=== PATIENT | female | born 1990 ===

== ENCOUNTER 2018-01-06 07:02 | Inpatient (IN) ==
[2018-01-06] MEDS ORDERED: ONDANSETRON 4 MG/2 ML VIAL IV PRN ×3 (08:26→21:44)
[2018-01-06] MEDS ORDERED: LACTATED RINGERS 1,000 ML IV SCH (08:30)
[2018-01-06] MEDS ORDERED: OXYTOCIN/LR 20 UNIT/1,000 ML BAG IV SCH (08:30)
[2018-01-06 08:45] LABS: Basophils % 0.2 % (0.0-0.8); Eosinophils # 0.1 10*3/uL (0.0-0.87); Eosinophils % 0.7 % (0.00-10.9); Hematocrit 36.4 VOL% (35.7-47.0); Hemoglobin 11.9 GM/DL (12.0-16.0); Immature Granulocytes % 0.3 %; Immature Granulocytes Absolute 0.03 #; Lymphocytes # 2.4 10*3/uL (1.4-4.0); Lymphocytes % 25.7 % (21.3-54.2); Mean Corpuscular HGB Conc 32.7 GM/DL (32-36); Mean Corpuscular Hemoglobin 30 PG (27-34); Mean Corpuscular Volume 90.1 FL (87-102); Mean Platelet Volume 11.6 FL (9.6-12.0); Monocytes # 0.5 10*3/uL (0.11-0.8); Monocytes % 5.8 % (1.7-12.7); Neutrophils # 6.1 10*3/uL (1.4-7.4); Neutrophils % 67.3 % (38.7-73.9); Platelet Count 274 T/CUMM (130-400); Red Blood Count 4.04 MC/CUMM (3.8-5.5); White Blood Count 9.1 T/CUMM (4-12)
[2018-01-06 09:23] LABS: Albumin 2.4 G/DL (3.4-5.0); Bilirubin,Total 0.5 MG/DL (0.2-1.0); Calcium 8.9 MG/DL (8.5-10.1); Osmolality,Calculated 275.5 MOS/KG (273-304); Potassium 3.9 MMOL/L (3.5-5.1); Total Protein 6.7 G/DL (6.4-8.3)
[2018-01-06] MEDS: MEPERIDINE 50 MG/1 ML VIAL IV PRN ×2 (13:42→16:12)
[2018-01-06] MEDS ORDERED: NALOXONE 0.4 MG/ML VIAL IV PRN (17:15)
[2018-01-06] MEDS ORDERED: CITRIC ACID/SODIUM CITRATE 30 ML UDCUP PO ONE (17:15)
[2018-01-06] MEDS ORDERED: LACTATED RINGERS 1,000 ML IV ONE (17:15)
[2018-01-06] MEDS ORDERED: FAMOTIDINE 20 MG/2 ML VIAL IV ONE (17:15)
[2018-01-06] MEDS ORDERED: ePHEDrine 50 MG/ML AMP IV PRN (17:15)
[2018-01-06] MEDS ORDERED: diphenhydrAMINE 50 MG/1 ML VIAL IV PRN ×2 (17:15)
[2018-01-06] MEDS ORDERED: fentaNYL 2 MCG/ROPIV 0.2% EPID 100 ML EPIDURAL SCH (17:30)
[2018-01-06] MEDS ORDERED: miSOPROStol 200 MCG TABLET ONE (19:19)
[2018-01-06] MEDS ORDERED: LIDOCAINE 1% 50 ML VIAL ONE (19:19)
[2018-01-06] MEDS ORDERED: METHYLERGONOVINE 0.2 MG/1 ML AMP ONE (19:20)
[2018-01-06] MEDS ORDERED: METHYLERGONOVINE 0.2 MG/1 ML AMP IM ONE (21:15)
[2018-01-06] MEDS ORDERED: ACETAMINOPHEN 325 MG TABLET PO PRN ×2 (21:42→21:44)
[2018-01-06] MEDS ORDERED: HYDROCORTISONE 2.5% RECTAL CREAM 30 GM TUBE TOP PRN ×2 (21:42→21:44)
[2018-01-06] MEDS ORDERED: OXYTOCIN/LR 20 UNIT/1,000 ML BAG IV ONE ×2 (21:42→21:44)
[2018-01-06] MEDS ORDERED: MEASLES/MUMPS/RUBELLA VACCINE 0.5 ML VIAL SUBCUT ONE (21:42)
[2018-01-06] MEDS ORDERED: WITCH HAZEL PADS 100/JAR TOP PRN ×2 (21:42→21:44)
[2018-01-06] MEDS ORDERED: BISACODYL 10 MG SUPP RECTAL PRN ×2 (21:42→21:44)
[2018-01-06] MEDS ORDERED: oxyCODONE/ACETAMINOPHEN 5-325 MG TABLET PO PRN ×3 (21:42→21:44)
[2018-01-06] MEDS ORDERED: BENZOCAINE 20%/MENTHOL 0.5% SPRAY 56 GM CAN TOP PRN ×2 (21:42→21:44)
[2018-01-06] MEDS ORDERED: LANOLIN 50% CREAM 0.3 OZ TUBE TOP PRN ×2 (21:42→21:44)
[2018-01-06] MEDS ORDERED: RHO(D) IMMUNE GLOBULIN 300 MCG SYRINGE IM ONE ×2 (21:42→21:44)
[2018-01-06] MEDS ORDERED: IBUPROFEN 800 MG TABLET PO PRN ×2 (21:42→21:44)
[2018-01-06] MEDS ORDERED: DIPH/TET/ACEL PERT BOOSTER VACCINE 0.5 ML VIAL IM ONE (21:42)
[2018-01-06] MEDS ORDERED: OXYTOCIN/LR 30 UNIT/1,000 ML BAG IV ONE (22:28)
[2018-01-07 00:10] LABS: Basophils % 0.2 % (0.0-0.8); Hematocrit 30.3 VOL% (35.7-47.0); Hemoglobin 10.1 GM/DL (12.0-16.0); Immature Granulocytes % 0.6 %; Immature Granulocytes Absolute 0.12 #; Lymphocytes # 1.5 10*3/uL (1.4-4.0); Lymphocytes % 7.9 % (21.3-54.2); Mean Corpuscular HGB Conc 33.3 GM/DL (32-36); Mean Corpuscular Hemoglobin 30 PG (27-34); Mean Corpuscular Volume 89.6 FL (87-102); Mean Platelet Volume 11.4 FL (9.6-12.0); Monocytes # 0.9 10*3/uL (0.11-0.8); Monocytes % 4.8 % (1.7-12.7); Neutrophils # 16.5 10*3/uL (1.4-7.4); Neutrophils % 86.5 % (38.7-73.9); Platelet Count 265 T/CUMM (130-400); Red Blood Count 3.38 MC/CUMM (3.8-5.5); Red Cell Distribution Width 14.9 % (9.3-17.3); White Blood Count 19.1 T/CUMM (4-12)
[2018-01-07] MEDS: IBUPROFEN 800 MG TABLET PO PRN ×3 (05:38→21:59)
[2018-01-07] MEDS: oxyCODONE/ACETAMINOPHEN 5-325 MG TABLET PO PRN ×2 (05:39→14:35)
[2018-01-07 07:00] LABS: Basophils % 0.2 % (0.0-0.8); Eosinophils % 0.1 % (0.00-10.9); Hematocrit 23.1 VOL% (35.7-47.0); Immature Granulocytes % 0.7 %; Immature Granulocytes Absolute 0.11 #; Lymphocytes # 2.2 10*3/uL (1.4-4.0); Lymphocytes % 13.1 % (21.3-54.2); Mean Corpuscular HGB Conc 33.8 GM/DL (32-36); Mean Corpuscular Hemoglobin 30 PG (27-34); Mean Corpuscular Volume 88.5 FL (87-102); Mean Platelet Volume 11.8 FL (9.6-12.0); Monocytes # 0.9 10*3/uL (0.11-0.8); Monocytes % 5.7 % (1.7-12.7); Neutrophils # 13.3 10*3/uL (1.4-7.4); Neutrophils % 80.2 % (38.7-73.9); Platelet Count 228 T/CUMM (130-400); White Blood Count 16.6 T/CUMM (4-12)
[2018-01-07 07:02] LABS: Hemoglobin 7.8 GM/DL (12.0-16.0); Red Blood Count 2.61 MC/CUMM (3.8-5.5)
[2018-01-07] MEDS ORDERED: DOCUSATE SODIUM 100 MG CAPSULE PO SCH ×2 (09:00)
[2018-01-07] MEDS ORDERED: FERROUS SULFATE 325 MG TABLET PO SCH ×2 (09:56→21:00)
[2018-01-07] MEDS: FERROUS SULFATE 325 MG TABLET PO SCH ×2 (11:23→21:59)
[2018-01-07] MEDS ORDERED: SODIUM CHLORIDE 0.9% 1,000 ML IV PRN ×2 (12:11→19:59)
[2018-01-07 17:08] LABS: Hematocrit 21.3 VOL% (35.7-47.0); Hemoglobin 7.3 GM/DL (12.0-16.0)
[2018-01-07] MEDS: DOCUSATE SODIUM 100 MG CAPSULE PO PRN (22:00)
[2018-01-08] MEDS: IBUPROFEN 800 MG TABLET PO PRN (04:05)
[2018-01-08 05:04] LABS: Basophils % 0.1 % (0.0-0.8); Eosinophils # 0.1 10*3/uL (0.0-0.87); Eosinophils % 0.7 % (0.00-10.9); Hematocrit 23.1 VOL% (35.7-47.0); Hemoglobin 7.6 GM/DL (12.0-16.0); Immature Granulocytes % 0.6 %; Immature Granulocytes Absolute 0.09 #; Lymphocytes # 2.5 10*3/uL (1.4-4.0); Lymphocytes % 17.6 % (21.3-54.2); Mean Corpuscular HGB Conc 32.9 GM/DL (32-36); Mean Corpuscular Hemoglobin 30 PG (27-34); Mean Corpuscular Volume 90.6 FL (87-102); Monocytes # 0.7 10*3/uL (0.11-0.8); Monocytes % 5.2 % (1.7-12.7); Neutrophils # 10.9 10*3/uL (1.4-7.4); Neutrophils % 75.8 % (38.7-73.9); Platelet Count 194 T/CUMM (130-400); Red Blood Count 2.55 MC/CUMM (3.8-5.5); Red Cell Distribution Width 15.8 % (9.3-17.3); White Blood Count 14.4 T/CUMM (4-12)
[2018-01-08 08:03] VITALS: BP 134/67
[2018-01-08] MEDS: FERROUS SULFATE 325 MG TABLET PO SCH (08:45)
[2018-01-08] MEDS: DOCUSATE SODIUM 100 MG CAPSULE PO PRN (08:45)
== END 2018-01-08 14:15 | disposition home or self-care (01) | DRG 560 ==
LOC: N.LDOUT 07:02 → N.LD 07:08 → N.OB 23:05
PROVIDERS: ADMIT Obstetrics & Gynecology; ATTEND Obstetrics & Gynecology